=== PATIENT | female | born 2000 | race Caucasian/White ===

== ENCOUNTER 2023-04-15 13:44 | Emergency (ER) | payer OTHER ==
[2023-04-15 13:50] VITALS: BP 137/61; PULSE 118; RESP 18; TEMP 98.2; BMI 24.7
[2023-04-15 15:24] LABS: BASO % 0.3 % (0-2.0); HEMATOCRIT 38.9 % (32.4-45.2); HEMOGLOBIN 13.1 GM/dL (10.7-15.3); MCH 30.1 pg (25.7-33.7); MCHC 33.8 g/dl (32.0-36.0); MEAN CELL VOLUME 89.2 fl (80-96); MEAN PLT VOLUME 8.9 fl (7.5-11.1); NEUT % 77.7 % (42.8-82.8); PLATELET COUNT 149 10^3/uL (134-434); RBC 4.36 M/mm3 (3.60-5.2); RDW 13.6 % (11.6-15.6)
[2023-04-15] MEDS ORDERED: ACETAMINOPHEN 325 MG TABLET (FP) ONE (15:25)
[2023-04-15] MEDS: ACETAMINOPHEN 325 MG TABLET (FP) PO ONE (15:28)
[2023-04-15 15:43] LABS: POTASSIUM 3.3 mmol/L (3.5-5.1)
[2023-04-15 15:45] LABS: CALCIUM 8.8 mg/dL (8.5-10.1)
[2023-04-15 15:46] LABS: ALBUMIN 3.3 g/dl (3.4-5.0); BLOOD UREA NITROGEN 4.2 mg/dL (7-18)
[2023-04-15 15:49] LABS: CREATININE 0.5 mg/dL (0.55-1.3)
[2023-04-15 15:50] LABS: TOT PROT 6.8 g/dl (6.4-8.2)
[2023-04-15 15:51] LABS: BILIRUBIN,TOTAL 0.2 mg/dL (0.2-1)
== END 2023-04-15 16:40 | disposition home or self-care (01) ==
LOC: JER 13:44
DX: O99.412 Diseases of the circulatory system complicating pregnancy, second trimester (principal); R00.2 Palpitations; O99.352 Diseases of the nervous system complicating pregnancy, second trimester; R51.9 Headache, unspecified; O99.512 Diseases of the respiratory system complicating pregnancy, second trimester; R06.02 Shortness of breath; J68.9 Unspecified respiratory condition due to chemicals, gases, fumes and vapors; Z3A.15 15 weeks gestation of pregnancy
CPT/HCPCS: 36415; 80053; 82375; 85025; 93005; 93010; 99283-25

== ENCOUNTER 2023-10-06 09:05 | Inpatient (IN) | payer OTHER ==
[2023-10-06] MEDS: ELECTROLYTE-148 SOLN 1,000 ML IV SCH (11:15)
[2023-10-06] MEDS ORDERED: AMPICILLIN SODIUM 2 GM VIAL ONE (11:27)
[2023-10-06] MEDS ORDERED: OXYTOCIN 20 UNITS in 0.9% NS 20 UNIT/1,000 ML INFUS.BAG IV ONE (11:27)
[2023-10-06] MEDS: AMPICILLIN - 2 GM in SODIUM CHLORIDE 100 ML IVPB ONE (11:28)
[2023-10-06] MEDS ORDERED: BUPIVACAINE HCL/PF 0.25% (2.5MG/ML) 10 ML VIAL ONE (12:01)
[2023-10-06] MEDS ORDERED: FENTANYL/BUPIVACAINE/NS/PF - PCEA - 50 ML DISP.SYRIN EP ONE (12:04)
[2023-10-06] MEDS: FENTANYL/BUPIVACAINE/NS/PF - PCEA - 50 ML DISP.SYRIN EP SCH (12:17)
[2023-10-06 12:19] LABS: BASO % 0.2 % (0-2.0); EOS % 0.2 % (0-4.5); HEMATOCRIT 44.8 % (32.4-45.2); HEMOGLOBIN 15.2 GM/dL (10.7-15.3); LYMPH % 10.3 % (8-40); MCH 31.1 pg (25.7-33.7); MEAN CELL VOLUME 91.6 fl (80-96); MONO % 4.3 % (3.8-10.2); PLATELET COUNT 124 10^3/uL (134-434); RDW 15.1 % (11.6-15.6); WHITE BLOOD COUNT 9.8 K/mm3 (4.0-10.0)
[2023-10-06] MEDS ORDERED: NALOXONE HCL 0.4 MG/ML VIAL IVPUSH PRN (12:21)
[2023-10-06 12:26] LABS: INR 0.86 (0.83-1.09); PROTHROMBIN TIME (PATIENT) 9.9 SEC (9.7-13.0)
[2023-10-06 12:29] LABS: ACTIVATED PTT 27.6 SECONDS (25.2-36.5)
[2023-10-06 12:32] LABS: POTASSIUM 3.8 mmol/L (3.5-5.1)
[2023-10-06 12:33] LABS: CALCIUM 8.7 mg/dL (8.5-10.1)
[2023-10-06 12:34] LABS: BLOOD UREA NITROGEN 11.3 mg/dL (7-18)
[2023-10-06 12:37] LABS: CREATININE 0.7 mg/dL (0.55-1.3)
[2023-10-06 14:02] VITALS: BMI 35.9
[2023-10-06] MEDS ORDERED: AMPICILLIN SODIUM 1 GM VIAL ONE (15:19)
[2023-10-06] MEDS: AMPICILLIN - 1 GM in SODIUM CHLORIDE 100 ML IVPB SCH (15:30)
[2023-10-06] MEDS ORDERED: MISOPROSTOL 200 MCG TABLET ONE (18:15)
[2023-10-06] MEDS ORDERED: LIDOCAINE HCL 1% PRESERVATIVE FREE - 30ML VIAL ONE (18:21)
[2023-10-06] MEDS: MISOPROSTOL 100 MCG TABLET PV ONE (18:40)
[2023-10-06] MEDS: OXYTOCIN 20 UNITS in 0.9% NS 20 UNIT/1,000 ML INFUS.BAG IV SCH (18:45)
[2023-10-06 19:03] LABS: CORD BASE EXCESS -6.7 mmol/L (0-2); CORD HCO3 20.1 mmHg (20-29); CORD PCO2 44.6 mmHg (30-78); CORD pH 7.271 (7.14-7.44)
[2023-10-06 19:13] LABS: CORD BASE EXCESS -10.3 mmol/L (0-2); CORD HCO3 19.6 mmHg (20-29); CORD PCO2 59.7 mmHg (30-78); CORD pH 7.134 (7.14-7.44)
[2023-10-06] MEDS ORDERED: IBUPROFEN 600 MG TABLET (FP) PO PRN (19:27)
[2023-10-06] MEDS ORDERED: WITCH HAZEL 50% (TUCKS) 40 PAD/JAR PAD TP PRN (19:27)
[2023-10-06] MEDS ORDERED: BENZOCAINE 20% 57 GM BOTTLE TP PRN (19:27)
[2023-10-06] MEDS ORDERED: BENZOCAINE 28 GM HEMORRHOIDAL OINTMENT TP PRN (19:27)
[2023-10-06] MEDS ORDERED: BISACODYL 10 MG SUPP.RECT RC PRN (19:27)
[2023-10-06] MEDS: ACETAMINOPHEN 325 MG TABLET (FP) PO PRN (23:36)
[2023-10-07] MEDS: AMPICILLIN NA/SULBACTAM NA 3 GM in SODIUM CHLORIDE 100 ML IVPB SCH ×2 (00:48→06:13)
[2023-10-07 08:41] LABS: BASO % 0.3 % (0-2.0); EOS % 0.3 % (0-4.5); HEMATOCRIT 36.3 % (32.4-45.2); HEMOGLOBIN 12.1 GM/dL (10.7-15.3); LYMPH % 12.6 % (8-40); MCH 31.1 pg (25.7-33.7); MCHC 33.4 g/dl (32.0-36.0); MEAN CELL VOLUME 93.1 fl (80-96); MEAN PLT VOLUME 9.3 fl (7.5-11.1); MONO % 5.9 % (3.8-10.2); NEUT % 80.9 % (42.8-82.8); PLATELET COUNT 117 10^3/uL (134-434); RDW 14.6 % (11.6-15.6); WHITE BLOOD COUNT 12.3 K/mm3 (4.0-10.0)
[2023-10-07] MEDS: DIPHTH,PERTUSS(ACELL),TET 0.5 ML DISP.SYRIN IM ONE (10:02)
[2023-10-07] MEDS ORDERED: SENNOSIDES/DOCUSATE COMBO (SENNA PLUS) TABLET (UD) PO PRN (22:00)
[2023-10-07 23:13] VITALS: RESP 18
[2023-10-08 10:14] VITALS: BP 99/60; PULSE 83; TEMP 98.2
== END 2023-10-08 14:50 | disposition home or self-care (01) | DRG 560 ==
LOC: JDEL 09:05 → JLDR 11:05 → J3W 21:20
PROVIDERS: ADMIT Student in an Organized Health Care Education/Training Program; ATTEND Student in an Organized Health Care Education/Training Program
PROC: 10D07Z6 Extraction of Products of Conception, Vacuum, Via Natural or Artificial Opening (ICD-10-PCS; principal; 2023-10-06)
PROC: 10907ZC Drainage of Amniotic Fluid, Therapeutic from Products of Conception, Via Natural or Artificial Opening (ICD-10-PCS; 2023-10-06)
PROC: 0KQM0ZZ Repair Perineum Muscle, Open Approach (ICD-10-PCS; 2023-10-06)
PROC: 0W8NXZZ Division of Female Perineum, External Approach (ICD-10-PCS; 2023-10-06)
DX: O41.1230 Chorioamnionitis, third trimester, not applicable or unspecified (principal); O66.0 Obstructed labor due to shoulder dystocia; O99.824 Streptococcus B carrier state complicating childbirth; O70.1 Second degree perineal laceration during delivery; Z3A.40 40 weeks gestation of pregnancy; Z37.0 Single live birth
CPT/HCPCS: 36415; 36600; 59409; 80048; 82803; 85025; 85610; 85730; 86780; 86850; 86900; 86901; 88307-TC; 90715